=== PATIENT | female | born 1975 | race Caucasian/White ===

== ENCOUNTER 2017-01-15 23:30 | Emergency (ER) | payer OTHER, SELFPAY ==
[~2017-01-15 23:30] MED LIST: ABILIFY10 MG; ABILIFY15 MG; ABILIFY5 MG; ABILIFY5 MG PO; ADVAIR 1001 DISK W/D; ALBUTEROL SULF8.5 GM IH; ALBUTEROL17 GM INH; AMOXICILLIN875 MG; AMOXICILLIN875 MG PO; ANTIVERT12.5 MG PO; ANTIVERT25 MG PO; ATIVAN0.5 MG; CEFDINIR300 MG PO; CORTISPORIN EAR10 M LEFT EAR; COUMADIN10 MG; COUMADIN7.5 MG; DARVOCET-N 1001 EACH PO; DEPAKOTE ER250 MG PO; DOXY-LEMMON100 M PO; EFFEXOR37.5 MG; EFFEXOR75 MG; FERATE240 ( 27 ) PO; FISH OIL300 M1 PO; FLOXIN10 ML LEFT EAR; GARLIC1 EACH PO; GLUCOPHAGE500 MG; H; IBUPROFEN800 MG PO; IRON SUPPLEMENT; IRON325 ( 65 ) PO; KEFLEX500 MG PO; LAMICTAL25 MG PO; LEVAQUIN250 MG PO; METROGEL-VAGINA70 GM VG; MOTRIN; MOTRIN600 MG PO; MOTRIN800 MG PO; MUCINEX1200 MG/BO PO; NORCO 5/325 TAB1 TAB PO; NORCO 7.5-3251 EACH PO; OMEPRAZOLE20 M4 PO; PEN-VEE K500 MG; PRILOSEC OTC20 MG PO; PRISTIQ50 MG; PROMETRIUM200 MG PO; PROTONIX40 MG; SYNTHROID25 MC1 PO; VEETIDS 500500 MG PO; VICODIN 5/500 T1 TAB; VICODIN 5/500 T1 TAB PO; VITAMIN D3; VITAMIN D310000 UNI1 PO; VITAMIN D350000 UNIT PO; VYVANSE; VYVANSE30 MG; WELLBUTRIN XL150 MG; WELLBUTRIN75 M1 PO; XANAX0.5 MG; ZITHROMAX250MG Z-PAK; ZITHROMAX250MG Z-PAK PO; [UNRECOGNIZED DRUG - REMARK]; [UNRECOGNIZED DRUG - REMARK]
== END 2017-01-16 00:55 ==
LOC: EDMED 23:30
DX: J02.9 Acute pharyngitis, unspecified (principal); Z90.710 Acquired absence of both cervix and uterus; Z98.890 Other specified postprocedural states

== ENCOUNTER 2017-01-23 21:32 | Emergency (ER) | payer OTHER, SELFPAY | END 2017-01-23 22:53 | disposition T | LOC: EDMED 21:32 | DX: M26.603 Bilateral temporomandibular joint disorder, unspecified (principal); J02.9 Acute pharyngitis, unspecified ==

== ENCOUNTER 2017-02-19 19:19 | Emergency (ER) | payer OTHER, SELFPAY ==
[2017-02-19 20:07] LABS: BASO % 0.3 % (0-2); BASO ABSOLUTE COUNT 0.1 tho/cmm (0.0-0.2); EOSINOPHIL ABSOLUTE COUNT 0.4 tho/cmm (0.0-0.7); HCT-HEMATOCRIT 40.7 % (34.0-49.0); HGB-HEMOGLOBIN 13.7 gm/dl (12.0-15.5); IMMATURE GRANULOCYTES ABSOLUTE 0.05 tho/cmm (0-0.03); IMMATURE GRANULOCYTES PERCENT 0.3 % (0-0.3); LYMPH % 29.5 % (20-45); LYMPH ABSOLUTE COUNT 4.4 tho/cmm (0.8-4.5); MCH (MEAN CORPUSCULAR HGB) 28.4 pg (28.0-32.0); MCHC MEAN CORPUSCULAR HGB CONC 33.7 % (32.0-36.0); MCV (MEAN CELL VOLUME) 84.4 fl (82.0-96.0); MEAN PLATELET VOLUME 9.1 cmc (9.4-12.4); MONO % 4.6 % (0-12); MONOCYTE ABSOLUTE COUNT 0.7 tho/cmm (0.0-1.2); NEUTROPHIL ABSOLUTE COUNT 9.2 tho/cmm (1.6-8.0); NEUTROPHIL-AUTOMATED 9.2 tho/cmm (1.6-8.0); NEUTROPHILS % 62.3 % (40-80); PLATELET COUNT 269 tho/cmm (150-450); RED BLOOD COUNT 4.82 mil/cmm (4.00-5.20); RED CELL DISTRIBUTION WIDTH 14.2 % (12.4-16.4); WHITE BLOOD COUNT 14.8 tho/cmm (4.0-10.0)
[2017-02-19 20:17] LABS: ALB/GLOB RATIO 0.9 (0.8-2.0); ALBUMIN 3.4 g/dl (3.5-5.0); ALKALINE PHOSPHATASE 56 U/L (33-138); ALT/SGPT 22 U/L (12-78); BILIRUBIN,TOTAL 0.2 mg/dl (0-1.5); BLOOD UREA NITROGEN 13 mg/dl (6-24); CARBON DIOXIDE-VENOUS 24 mmol/L (22-32); CHLORIDE 106 mmol/l (96-110); CREATININE 0.96 mg/dl (0.50-1.10); GLUCOSE 120 mg/dL (70-110); SODIUM 140 mmol/L (135-145); eGFR VALUE FOR BLACK 84 mL/Min
[2017-02-19 20:20] LABS: ANION GAP 14 mmol/L (0-20); AST/SGOT 23 U/L (10-40); MAGNESIUM 2.1 mg/dl (1.8-2.6); POTASSIUM 3.8 mmol/L (3.7-5.1)
== END 2017-02-19 22:49 ==
LOC: EDMED 19:19
PROVIDERS: Emergency Medicine
DX: R07.89 Other chest pain (principal); R53.83 Other fatigue; E07.9 Disorder of thyroid, unspecified; Z86.718 Personal history of other venous thrombosis and embolism; Z86.711 Personal history of pulmonary embolism; Z90.710 Acquired absence of both cervix and uterus; Z98.890 Other specified postprocedural states; Z79.890 Hormone replacement therapy; Z79.899 Other long term (current) drug therapy
CPT/HCPCS: J1885; J2060; J7030; Q9967

== ENCOUNTER 2017-03-01 21:59 | Emergency (ER) | payer OTHER, SELFPAY | END 2017-03-01 22:53 | disposition T | LOC: EDMED 21:59 | DX: S90.861A Insect bite (nonvenomous), right foot, initial encounter (principal); W57.XXXA Bitten or stung by nonvenomous insect and other nonvenomous arthropods, initial encounter ==